=== PATIENT | male | born 1985 | race Caucasian/White ===

== ENCOUNTER 2017-05-09 12:57 | Emergency (ER) | payer BC ==
[~2017-05-09] VITALS: Ht 182.9 cm; Wt 151.9 kg
[~2017-05-09 12:57] MED LIST: CEPH500 PO; CODGUAEL PO; HYDACE5 PO; KETO10 PO; PENVK500 PO; RANI150 PO; Zithromax250 MG PO
[2017-05-09 13:37] LABS: BASOPHILS ABSOLUTE AUTO 0.06 K/mm3 (0.00-0.23); BASOPHILS PERCENT AUTO 1 % (0-2); EOSINOPHILS ABSOLUTE AUTO 0.35 K/mm3 (0.00-0.68); EOSINOPHILS PERCENT AUTO 3 % (0-6); Hematocrit 41.7 % (37.0-53.0); Hemoglobin 14.7 g/dL (13.5-17.5); IMMATURE GRAN ABSOLUTE AUTO 0.03 K/mm3 (0.00-0.10); IMMATURE GRAN PERCENT AUTO 0 % (0-1); LYMPHOCYTES ABSOLUTE AUTO 3.42 K/mm3 (0.84-5.20); LYMPHOCYTES PERCENT AUTO 32 % (21-46); MONOCYTES ABSOLUTE AUTO 0.61 K/mm3 (0.16-1.47); MONOCYTES PERCENT AUTO 6 % (4-13); Mean Corpuscular HGB 30.1 pg (26.0-34.0); Mean Corpuscular HGB Conc 35.3 g/dL (31.5-36.5); Mean Corpuscular Volume 86 fL (80-100); Mean Platelet Volume 10.1 fL (9.1-12.4); NEUTROPHILS ABSOLUTE AUTO 6.14 K/mm3 (1.96-9.15); NEUTROPHILS PERCENT AUTO 58 % (41-73); Platelet Count 315 K/mm3 (150-400); RDW Standard Deviation 39.9 fL (35.1-46.3); Red Blood Cell Count 4.88 M/mm3 (4.30-5.90); White Blood Cell Count 10.61 K/mm3 (4.00-11.30)
[2017-05-09 14:00] LABS: Troponin I <0.015 ng/mL (0.000-0.040)
[2017-05-09 14:01] LABS: Alanine Aminotransfer (ALT/SGP 70 U/L (12-78); Albumin, Blood 4.2 g/dL (3.4-5.0); Alk Phos 54 U/L (50-136); Anion Gap 8 mmol/L (6-16); Aspartate Aminotrans (AST/SGOT 64 U/L (12-37); Bilirubin, Total 1.2 mg/dL (0.1-1.0); Blood Urea Nitrogen 18 mg/dL (8-24); Bun/Creatinine Ratio 17.1 (12.0-20.0); CO2, Blood 27 mmol/L (21-32); Chloride, Blood 103 mmol/L (98-108); Creatinine, Blood 1.05 mg/dL (0.60-1.20); Glomerular Filtration Rate >60 (60-); Glucose, Blood 92 mg/dL (70-99); Potassium, Blood 3.7 mmol/L (3.5-5.5); Sodium, Blood 138 mmol/L (136-145); Total Protein, Blood 8.2 g/dL (6.4-8.2)
[2017-05-09] MEDS ORDERED: Pepcid40 MG PO (17:07)
== END 2017-05-09 17:15 | disposition home or self-care (01) ==
LOC: ER 12:57
PROVIDERS: Emergency Medicine
DX: R07.9 Chest pain, unspecified (principal); F17.210 Nicotine dependence, cigarettes, uncomplicated
CPT/HCPCS: 36415; 71046; 80053; 84484; 85025; 93005; 93010; 96374; 99283; J3490

== ENCOUNTER 2018-04-29 03:49 | Emergency (ER) | payer BC ==
[~2018-04-29] VITALS: Ht 180.3 cm; Wt 158.8 kg
[~2018-04-29 03:49] MED LIST changes: +Pepcid40 MG PO
[2018-04-29] MEDS ORDERED: OXYC5 (04:17)
[2018-04-29] MEDS ORDERED: METO50 PO (04:17)
[2018-04-29] MEDS ORDERED: ACET500 PO (04:18)
[2018-04-29] MEDS ORDERED: Klor-Con 1010 MEQ PO (04:18)
[2018-04-29] MEDS ORDERED: WARF1 PO (04:18)
[2018-04-29] MEDS ORDERED: FURO20 PO (04:19)
[2018-04-29 04:25] LABS: BASOPHILS ABSOLUTE AUTO 0.08 K/mm3 (0.00-0.23); BASOPHILS PERCENT AUTO 1 % (0-2); EOSINOPHILS ABSOLUTE AUTO 0.76 K/mm3 (0.00-0.68); EOSINOPHILS PERCENT AUTO 6 % (0-6); Hematocrit 37.1 % (37.0-53.0); Hemoglobin 12.3 g/dL (13.5-17.5); IMMATURE GRAN PERCENT AUTO 1 % (0-1); LYMPHOCYTES ABSOLUTE AUTO 2.85 K/mm3 (0.84-5.20); LYMPHOCYTES PERCENT AUTO 22 % (21-46); MONOCYTES PERCENT AUTO 9 % (4-13); Mean Corpuscular HGB 29.4 pg (26.0-34.0); Mean Corpuscular HGB Conc 33.2 g/dL (31.5-36.5); Mean Corpuscular Volume 89 fL (80-100); Mean Platelet Volume 9.3 fL (9.1-12.4); NEUTROPHILS ABSOLUTE AUTO 8.05 K/mm3 (1.96-9.15); NEUTROPHILS PERCENT AUTO 62 % (41-73); Platelet Count 377 K/mm3 (150-400); RDW Coefficient Variation 12.2 % (11.7-14.2); RDW Standard Deviation 39.8 fL (35.1-46.3); Red Blood Cell Count 4.18 M/mm3 (4.30-5.90); White Blood Cell Count 12.94 K/mm3 (4.00-11.30)
[2018-04-29 04:47] LABS: Alanine Aminotransfer (ALT/SGP 156 U/L (12-78); Albumin/Globulin Ratio 0.7 (0.8-1.8); Alk Phos 91 U/L (50-136); Anion Gap 10 mmol/L (6-16); Aspartate Aminotrans (AST/SGOT 64 U/L (12-37); Bilirubin, Total 0.6 mg/dL (0.1-1.0); Blood Urea Nitrogen 16 mg/dL (8-24); Bun/Creatinine Ratio 20.4 (12.0-20.0); CO2, Blood 25 mmol/L (21-32); Calcium, Blood 8.4 mg/dL (8.5-10.1); Chloride, Blood 101 mmol/L (98-108); Creatinine, Blood 0.79 mg/dL (0.60-1.20); Globulin, Blood 4.2 g/dL (2.2-4.0); Glomerular Filtration Rate >60 (60-); Glucose, Blood 129 mg/dL (70-99); Potassium, Blood 3.9 mmol/L (3.5-5.5); Sodium, Blood 136 mmol/L (136-145); Total Protein, Blood 7.2 g/dL (6.4-8.2); Troponin I 0.054 ng/mL (0.000-0.040)
[2018-04-29 05:05] LABS: International Normalized Ratio 3.33; Prothrombin Time Results 31.6 Sec (9.7-11.5)
== END 2018-04-29 08:10 | disposition home or self-care (01) ==
LOC: ER 03:49
PROVIDERS: Emergency Medicine
DX: R00.2 Palpitations (principal); R00.0 Tachycardia, unspecified; F17.210 Nicotine dependence, cigarettes, uncomplicated; Z79.01 Long term (current) use of anticoagulants; Z79.899 Other long term (current) drug therapy; Z95.2 Presence of prosthetic heart valve
CPT/HCPCS: 36415; 71046; 80053; 83880; 84484; 85025; 85610; 85730; 93005; 93010; 99285-25

== ENCOUNTER 2024-06-05 14:23 | Inpatient (IN) | payer OTHER ==
[~2024-06-05] VITALS: Ht 182.9 cm; Wt 104.5 kg
[~2024-06-05 14:23] MED LIST changes: -ALBU90OI INH; -METO25ER PO; -WARF5
[2024-06-05] MEDS ORDERED: Lactated Ringer's 1,000 ML IV ONE ×2 (14:45→18:00)
[2024-06-05 15:20] LABS: Albumin, Blood 3.3 g/dL (3.4-5.0); Albumin/Globulin Ratio 0.7 (0.8-1.8); Bilirubin, Total 1.1 mg/dL (0.1-1.0); Bun/Creatinine Ratio 32.1 (12.0-20.0); Calcium, Blood 9.4 mg/dL (8.5-10.1); Creatinine, Blood 0.53 mg/dL (0.60-1.20); Globulin, Blood 4.8 g/dL (2.2-4.0); Magnesium, Blood 1.7 mg/dL (1.6-2.4); Potassium, Blood 3.9 mmol/L (3.5-5.5); Total Protein, Blood 8.1 g/dL (6.4-8.2)
[2024-06-05 15:27] LABS: BASOPHILS ABSOLUTE AUTO 0.02 K/mm3 (0.00-0.23); BASOPHILS PERCENT AUTO 0 % (0-2); EOSINOPHILS ABSOLUTE AUTO 0.04 K/mm3 (0.00-0.68); EOSINOPHILS PERCENT AUTO 0 % (0-6); Hematocrit 43.6 % (37.0-53.0); Hemoglobin 14.9 g/dL (13.5-17.5); IMMATURE GRAN ABSOLUTE AUTO 0.04 K/mm3 (0.00-0.10); IMMATURE GRAN PERCENT AUTO 0 % (0-1); LYMPHOCYTES ABSOLUTE AUTO 1.27 K/mm3 (0.84-5.20); LYMPHOCYTES PERCENT AUTO 12 % (21-46); MONOCYTES PERCENT AUTO 3 % (4-13); Mean Corpuscular HGB 27.1 pg (26.0-34.0); Mean Corpuscular HGB Conc 34.2 g/dL (31.5-36.5); Mean Corpuscular Volume 79 fL (80-100); Mean Platelet Volume 11.9 fL (9.1-12.4); NEUTROPHILS ABSOLUTE AUTO 9.27 K/mm3 (1.96-9.15); NEUTROPHILS PERCENT AUTO 85 % (41-73); Platelet Count 297 K/mm3 (150-400); RDW Coefficient Variation 12.9 % (11.7-14.2); RDW Standard Deviation 36.3 fL (35.1-46.3); Red Blood Cell Count 5.49 M/mm3 (4.30-5.90); White Blood Cell Count 10.94 K/mm3 (4.00-11.30)
[2024-06-05 15:30] LABS: Prothrombin Time Results >90.0 Sec (9.7-11.5)
[2024-06-05 15:31] LABS: International Normalized Ratio >10.00
[2024-06-05 16:13] LABS: CORONAVIRUS COVID-19 AG Negative (NEGATIVE); INFLUENZA A AG Negative (NEGATIVE); INFLUENZA B AG Negative (NEGATIVE)
[2024-06-05] MEDS ORDERED: Lactated Ringer's 1,000 ML IV SCH (17:50)
[2024-06-05] MEDS ORDERED: Ondansetron HCl 2 MG / ML 2ML Vial IV PRN (17:50)
[2024-06-05] MEDS ORDERED: Labetalol HCL 5 MG/ML 4ML Injection (Single Dose) IV ONE (18:00)
[2024-06-05] MEDS ORDERED: Propranolol HCL 20 MG TAB PO SCH (18:00)
[2024-06-05] MEDS ORDERED: WARF5 (18:58)
[2024-06-05] MEDS ORDERED: METO25ER PO (18:59)
[2024-06-05] MEDS ORDERED: ALBU90OI INH (18:59)
[2024-06-05 19:13] LABS: Free Thyroxine 6.47 ng/dL (0.70-1.60)
[2024-06-05 19:47] LABS: Thyroid Stimulating Hormone <0.005 uIU/mL (0.360-4.800); Triiodothyronine, Free 16.98 pg/mL (2.18-3.98)
[2024-06-05 20:45] LABS: Source, Urine Clean Catch
[2024-06-05 20:45] LABS: Lactate Dehydrogenase (Ld),Bld 247 U/L (100-240)
[2024-06-05 20:50] VITALS: BP 182/103
[2024-06-05 20:54] LABS: Appearance, Urine Clear (Clear); Bilirubin, Urine Neg (Neg); Blood, Urine Neg (Neg); Color, Urine Yellow (P-Yellow); Glucose Qualitative, Urine Neg (Neg); Ketones, Urine Neg (Neg); Leukocyte Esterase, Urine Neg (Neg); Nitrite, Urine Neg (Neg); Protein, Urine 1+ (Neg); Urobilinogen, Urine NORM (Normal)
[2024-06-05 21:09] LABS: U Amphetamine Screen Not Detected; U Barbituate Screen Not Detected; U Benzodiazapine Screen Not Detected; U Buprenorphine Screen Not Detected; U Cannabinoids Screen Not Detected; U Cocaine Screen Not Detected; U Methadone Screen Not Detected; U Methamphetamine Screen Not Detected; U Opiates Screen Not Detected; U Oxycodone Screen Not Detected; U Phencyclidine Screen Not Detected
[2024-06-05] MEDS ORDERED: Methimazole 10 MG Tab PO SCH (22:00)
[2024-06-05] MEDS ORDERED: Losartan Potassium 50 MG Tab PO ONE (22:30)
[2024-06-05] MEDS ORDERED: Labetalol HCL 5 MG/ML 4ML Injection (Single Dose) IV PRN (23:05)
[2024-06-06] VITALS (26 sets, daily range): BP systolic 135–185; BP diastolic 64–108
--- NOTE | 2024-06-06 01:52 | NUR ---
ADMIT NOTE FOR 06/05/242044/ SHIFT SUMMARY REPORT WAS RECEIVED FROM THE ER NURSE. PT WAS BROUGHT DOWN IN THE W/C AND TRANSFERRED INTO THE BED. PT WAS ORIENTED TO ROOM AND STAFF. HES ALERT ORIENTED X 4. HE HAS TINGLING TO HIS BILATERAL HANDS AND FEET. HES UNABLE TO BRIDGE REPAIR CREW PERSON HIS ARMS OR HIS LEGS. BOTH ARE VERY WEAK. HES UNABLE TO STAND WITHOUT 2 PERSON MAX ASSIST. HE GOT UP TO THE COMMODE AND REQUIRES 2 PERSON MAX ASSIST. HE HAD ONE EPISODE OF LIQUID LOOSE STOOLS. HES CONTINENT OF B&B BUT UNABLE TO HOLD THE URINAL SO REQUIRES ASSIST OF THE STAFF. NO C/O PAIN. REMAINS ON TELEMETRY AT [place] AT 109. ON ADMIT PTS BP WAS 182/103 MD WAS CALLED AND GAVE ORDERS FOR BP MEDS. ON RECHECK HIS BP WAS 160/81. HIS THYROID LEVELS ARE ELEVATED. STATED THAT HES THINKING THAT HE HAS HYPERTHYROIDISM MYOPATHY OR VIRAL MYOPATHY. HE WAS STARTED ON A THYROID MED. HE REMAINS ON LR AT 125. HE HAS A SOFT TOUCH CALL LIGHT R/T HES UNABLE TO PUSH THE CALL LIGHT. HE REMAINS ON A CONTINUOUS PULSE OX ON RA SATTING AT 91-93%. HES RESTING IN BED AT THIS TIME WITH CALL LIGHT IN REACH
[2024-06-06 03:03] LABS: Adenovirus Not Detected (NOT DETECT); Bordetella pertussis Not Detected (NOT DETECT); Chlamydophila pneumoniae Not Detected (NOT DETECT); Coronavirus 229E Not Detected (NOT DETECT); Coronavirus HKU1 Not Detected (NOT DETECT); Coronavirus NL63 Not Detected (NOT DETECT); Coronavirus OC43 Not Detected (NOT DETECT); Human Metapneumovirus Not Detected (NOT DETECT); Human Rhinovirus/Enterovirus Not Detected (NOT DETECT); Influenza A/2009-H1 Not Detected (NOT DETECT); Influenza A/H1 Not Detected (NOT DETECT); Influenza A/H3 Not Detected (NOT DETECT); Influenza B Not Detected (NOT DETECT); Mycoplasma pneumoniae Detected (NOT DETECT); Parainfluenza Virus 1 Not Detected (NOT DETECT); Parainfluenza Virus 2 Not Detected (NOT DETECT); Parainfluenza Virus 3 Not Detected (NOT DETECT); Parainfluenza Virus 4 Not Detected (NOT DETECT); Respiratory Syncytial Virus Not Detected (NOT DETECT); SARS-Cov-2 (COVID-19), BioFire Not Detected (NOT DETECT)
[2024-06-06 06:24] LABS: Albumin, Blood 2.9 g/dL (3.4-5.0); Albumin/Globulin Ratio 0.7 (0.8-1.8); Bun/Creatinine Ratio 33.6 (12.0-20.0); Calcium, Blood 9.3 mg/dL (8.5-10.1); Creatinine, Blood 0.45 mg/dL (0.60-1.20); Globulin, Blood 4.4 g/dL (2.2-4.0); Potassium, Blood 4.1 mmol/L (3.5-5.5); Total Protein, Blood 7.3 g/dL (6.4-8.2)
[2024-06-06 06:39] LABS: BASOPHILS ABSOLUTE AUTO 0.01 K/mm3 (0.00-0.23); BASOPHILS PERCENT AUTO 0 % (0-2); EOSINOPHILS PERCENT AUTO 0 % (0-6); Hematocrit 40.2 % (37.0-53.0); Hemoglobin 13.8 g/dL (13.5-17.5); IMMATURE GRAN ABSOLUTE AUTO 0.04 K/mm3 (0.00-0.10); IMMATURE GRAN PERCENT AUTO 0 % (0-1); LYMPHOCYTES ABSOLUTE AUTO 1.52 K/mm3 (0.84-5.20); LYMPHOCYTES PERCENT AUTO 14 % (21-46); MONOCYTES ABSOLUTE AUTO 0.61 K/mm3 (0.16-1.47); MONOCYTES PERCENT AUTO 6 % (4-13); Mean Corpuscular HGB 27.3 pg (26.0-34.0); Mean Corpuscular HGB Conc 34.3 g/dL (31.5-36.5); Mean Corpuscular Volume 79 fL (80-100); Mean Platelet Volume 11.7 fL (9.1-12.4); NEUTROPHILS ABSOLUTE AUTO 8.69 K/mm3 (1.96-9.15); NEUTROPHILS PERCENT AUTO 80 % (41-73); Platelet Count 289 K/mm3 (150-400); RDW Coefficient Variation 13.2 % (11.7-14.2); RDW Standard Deviation 37.6 fL (35.1-46.3); Red Blood Cell Count 5.06 M/mm3 (4.30-5.90); White Blood Cell Count 10.87 K/mm3 (4.00-11.30)
[2024-06-06 06:56] LABS: Prothrombin Time Results >90.0 Sec (9.7-11.5)
[2024-06-06 06:58] LABS: International Normalized Ratio >10.00
[2024-06-06] MEDS ORDERED: Losartan Potassium 50 MG Tab PO SCH (09:00)
[2024-06-06] MEDS ORDERED: Azithromycin 500 MG in NS 250 ML IV SCH (09:00)
--- NOTE | 2024-06-06 09:00 | NUR ---
Pt laying in bed awake, a/ox4, pleasant and cooperative with care, follows commands well, denies pain at this time, lungs are clear t/o, resp even and unlabored, no cough noted, on r/a, hrr, valve is noted, tele in place running st in low 100's per monitor, see strip, no edema noted, ppp+2, cap refill<3sec, vs stable, afebrile, piv to rac site is clear and patent, btx4, abd flat soft nontender, voids without diff, skin c/w/d, unable to move ext except slightly, zunilda, call light in reach.
[2024-06-06] MEDS ORDERED: Phytonadione 10 MG in NS 50 ML IV ONE (17:00)
--- NOTE | 2024-06-06 17:55 | NUR ---
pt voice quality is less, he is only speaking in a whisper, is a bit sob, sats are 92%, but feels his chest is heavy, Dr. Maldonado in to see him, explained whats going on, and will move to pcu, report was given to recieving nurse, took him to pcu via bed, did start vit k, all belongings went with pt.
[2024-06-06] MEDS ORDERED: HydrALAZINE HCl 20 MG / ML 1ML Vial IV PRN (18:15)
[2024-06-06] MEDS ORDERED: IMMUN GLOB G(IGG)/PRO/IGA 0-50 400 ML IV SCH (19:00)
--- NOTE | 2024-06-06 19:30 | NUR ---
INITIAL NEUROLOGICAL EXAM ON PT ON ASSUMPTION OF CARE: PT WAS ALERT AND ORIENTED X4. HE DENIED ANY LOSS OF SENSATION TO ANY PART OF HIS BODY. LOWER EXTREMITIES: BILATERAL STRENGTH IS EQUAL 4/5 SHOULDERS: EQUAL BILATERALLY, ABLE TO RAISE BUT WEAKNESS NOTED 3/5 UPPER EXTREMITIES: 0/5 ; AGAIN DENIES ANY SENSATION LOSS PT WAS ABLE TO LIFT HIS HEAD OFF THE PILLOW W/SOME DIFFICULTY. HE COULD CONTRACT HIS DIAPHRAM TO SOME DEGREE. HIS BREATHING IS SHALLOW, ON BIPAP AT THIS TIME, SATS MAINTAINING GREATER THAN 92%. PUPILS ARE 3 BILATERALLY, PERRLA COUGH, GAG, SWALLOW INTACT
--- NOTE | 2024-06-06 19:46 | NUR ---
DR CLEMENTE AT BEDSIDE
[2024-06-06] MEDS ORDERED: propofoL 100 ML IV ONE (20:08)
[2024-06-06] MEDS ORDERED: propofoL 100 ML IV SCH (20:10)
[2024-06-06] MEDS ORDERED: Midazolam HCl 1MG / ML 2ML Vial ONE (20:20)
[2024-06-06] MEDS ORDERED: Midazolam HCl 1MG / ML 2ML Vial IV ONE (20:20)
[2024-06-06] MEDS ORDERED: FentaNYL Citrate 50 MCG/ML 2 ML Injection IV PRN (20:20)
[2024-06-06] MEDS ORDERED: FentaNYL Citrate 50 MCG/ML 2 ML Injection ONE (20:20)
[2024-06-06] MEDS ORDERED: Atenolol 50 MG Tab PO SCH (21:00)
--- NOTE | 2024-06-06 21:00 | NUR ---
DR CLEMENTE SPOKE TO PT AND PT FAMILY AT BEDSIDE, EDUCATED ON PT CONDITION AND PROCEDURE OF INTUBATION. PT AND FAMILY WERE AGREEABLE TO PROCEED W/INTUBATION. PT WAS INTUBATED W/OUT DIFFICULTY. 8.0 TUBE 26 AT THE TEETH. OG PLACED TO ILWS. BILE COMING OUT. XRAY COMFIRMED AT BEDSIDE BY DR CLEMENTE. PT HAS PROPOFOL INFUSING FOR SEDATION. PTS VS REMAINED STABLE THROUGHOUT PROCEDURE. KOLB CATHETER WAS PLACED USING STERILE TECHNIQUE W/OUT DIFFICULTY. ADJUNCT MEDICATIONS GIVEN FOR SEDATION/VENT COMPLIANCE SEE EMAR.
[2024-06-06] MEDS ORDERED: Propofol 10mg/ml 20 ml Vial (Procedural) IV ONE (21:45)
--- NOTE | 2024-06-06 22:02 | NUR ---
IV IgG LOT # [id number] EXPIRATION 10/02/26 GIVEN 2ND BOTTLE
[2024-06-08 06:54] LABS: TSH RECEPTOR ANTIBODY 6.82 IU/L (<=1.75)
== END 2024-06-06 23:10 | disposition short-term general hospital (02) | DRG 94 ==
LOC: ER 14:23 → MEDS 14:24 → ERHOLD 14:24 → MEDS 20:45 → ICUE 06-06 14:49 → MEDS 06-06 14:50 → PCU 06-06 18:06 → ICUE 06-06 18:30
PROVIDERS: Nurse Practitioner Acute Care; Student in an Organized Health Care Education/Training Program; ADMIT Internal Medicine
PROC: 5A1935Z Respiratory Ventilation, Less than 24 Consecutive Hours (ICD-10-PCS; principal; 2024-06-06)
PROC: 0BH17EZ Insertion of Endotracheal Airway into Trachea, Via Natural or Artificial Opening (ICD-10-PCS; 2024-06-06)
PROC: 30233S1 Transfusion of Nonautologous Globulin into Peripheral Vein, Percutaneous Approach (ICD-10-PCS; 2024-06-06)
DX: G61.0 Guillain-Barre syndrome (principal); J96.01 Acute respiratory failure with hypoxia; E87.1 Hypo-osmolality and hyponatremia; E87.20 Acidosis, unspecified; R79.1 Abnormal coagulation profile; G72.3 Periodic paralysis; E05.00 Thyrotoxicosis with diffuse goiter without thyrotoxic crisis or storm; R74.01 Elevation of levels of liver transaminase levels; I10 Essential (primary) hypertension; F17.210 Nicotine dependence, cigarettes, uncomplicated; E86.0 Dehydration; Z95.2 Presence of prosthetic heart valve; Z79.01 Long term (current) use of anticoagulants
CPT/HCPCS: 0202U; 36415; 51702; 70450; 71045; 72125; 80053; 82306; 82533; 82550; 82607; 82746; 82947; 83036; 83520; 83605; 83615; 83735; 83880; 84100; 84145; 84439; 84443; 84481; 84484; 85025; 85610; 85651; 85730; 86140; 87428-QW; 92610; 93005; 93010; 94002; 94660; 94762; 99285-25; A9270; G0378; J0456; J1459; J2250; J2704; J3010; J3430; J7050; J7120

== ENCOUNTER → 2024-06-05 | Outpatient (CLI) | payer OTHER ==
[~2024-06-05] MED LIST changes: +ACET500 PO; +ALBU90OI INH; +FURO20 PO; +Klor-Con 1010 MEQ PO; +METO25ER PO; +METO50 PO; +OXYC5; +WARF1 PO; +WARF5
[2024-06-05 14:38] LABS: Albumin, Blood 3.4 g/dL (3.4-5.0); Albumin/Globulin Ratio 0.7 (0.8-1.8); Bilirubin, Total 1.2 mg/dL (0.1-1.0); Bun/Creatinine Ratio 32.3 (12.0-20.0); Calcium, Blood 9.6 mg/dL (8.5-10.1); Creatinine, Blood 0.53 mg/dL (0.60-1.20); Phosphorus, Blood 4.4 mg/dL (2.5-4.9); Total Protein, Blood 8.4 g/dL (6.4-8.2)
[2024-06-05 14:59] LABS: Hematocrit 44.8 % (37.0-53.0); Hemoglobin 15.5 g/dL (13.5-17.5); Mean Corpuscular HGB 27.3 pg (26.0-34.0); Mean Corpuscular Volume 79 fL (80-100); Mean Platelet Volume 11.5 fL (9.1-12.4); Platelet Count 348 K/mm3 (150-400); RDW Coefficient Variation 12.9 % (11.7-14.2); RDW Standard Deviation 36.2 fL (35.1-46.3); Red Blood Cell Count 5.68 M/mm3 (4.30-5.90); White Blood Cell Count 10.72 K/mm3 (4.00-11.30)
[2024-06-05 15:00] LABS: Mean Corpuscular HGB Conc 34.6 g/dL (31.5-36.5)
[2024-06-05 15:29] LABS: BASOPHILS PERCENT MAN 1 % (0-2); EOSINOPHILS PERCENT MAN 1 % (0-6); LYMPHOCYTES % ATYPICAL MANUAL 2 % (0-0); LYMPHOCYTES ABSOLUTE MAN 2.25 K/mm3 (0.84-5.20); LYMPHOCYTES PERCENT MAN 19 % (21-46); MONOCYTES ABSOLUTE MAN 0.21 K/mm3 (0.16-1.47); MONOCYTES PERCENT MAN 2 % (4-13); NEUTROPHILS ABSOLUTE MAN 8.04 K/mm3 (1.96-9.15); SEG NEUTROPHILS PERCENT MAN 75 % (41-73); TOTAL CELLS COUNTED 100
== END ==
LOC: LAB SHORT 13:24 → LAB 13:24
PROVIDERS: Nurse Practitioner
DX: J22 Unspecified acute lower respiratory infection (principal); R06.2 Wheezing; R11.10 Vomiting, unspecified; R19.7 Diarrhea, unspecified; R61 Generalized hyperhidrosis
CPT/HCPCS: 80053; 84100; 85007; 85027